=== PATIENT | male | born 1965 | race African-American/Black ===

== ENCOUNTER 2016-10-03 16:55 | Inpatient (IN) | payer OTHER ==
--- NOTE | ~2016-10-03 | IDS ---
Interim Discharge Summary [facility] [address] [place]. [address] NAME: LIONEL COLE III : 65 STATUS : ADM IN PAT#: [id number] AGE: 51 ADM/REG DATE : 10/03/16 MR#: [id number] REPORT SERV DATE: 10/17/16 DICTATED BY: LOLA FUENTES DATE: 10/17/16 REPORT STATUS : Draft TRANSCRIBED BY: MODL DATE: 10/17/16 ADMISSION DATE: 10/03/2016 DISCHARGE DATE: This is my own progress note as well as interim discharge summary for the date of 10/17/2016. SUBJECTIVE: The patient feels great. Protonix has worked very well for his heartburn. He wants to deescalate TPN [place], so that he may be able to be discharged [place], and eventually arrive back in [place] where he would rather be living. OBJECTIVE: VITAL SIGNS: Blood pressure are 118/73, 99% on room air, 15 respirations, 81 pulse, 98.5 temp. GENERAL: In no acute distress. He does look cachectic though. HEENT: PERRLA. No scleral icterus. CARDIOVASCULAR: Regular rate and rhythm. No murmur. RESPIRATORY: Clear to auscultation bilaterally. No wheezes or crackles. ABDOMEN: Nontender and nondistended. Positive bowel sounds. EXTREMITIES: No edema. No ecchymosis. NEURO: GCS 15. A and O x4/4. PSYCH: Normal affect and mood. LABORATORY DATA: 10.9 white count, 8.5 hemoglobin, his hemoglobin has trended from 8.7 to 8.5, platelets are 389,000, 129 of sodium from 135, 95 chloride, CO2 27, BUN 26, 0.8 creatinine, phos of 2.5, a mag of 2.0 as well as a new sodium is 132 from 129, chloride 101 from 95, BUN 18, creatinine 0.76. Mag of 1.9, phos 2.7. Blood cultures, no growth to date on 10/13/2016. IMAGING: I did a repeat CT on 10/13/2016, regarding his recurrent ileus and this showed no obstruction at that time. Fluid collection right upper abdomen largely decompressed. Small bowel residual fluid seen superior to the drain cavity. A surgical drain was positioned for which I had an abscessogram at that time HOSPITAL COURSE: This 51-year-old unfortunate male, with known history of pancreatic cancer for which the patient had a Whipple procedure in [place] of last year. The patient was doing fairly well, but then somehow arrived in [place], [place], for which the patient may have had a perforated bowel, unclear history given records from that hospital still yet to arrive given 30 day dictation time, this occurred within the past month. Apparently at that time, he had bowel wall thickening, free air, emergent surgery, then he came here on his way to [place] from which he is originally from. The patient as a result came in here with abdominal pain, nausea, and vomiting. He had a CT that showed two abscesses for which were both drained via IR, 1.2 L purulent material, 100 mL on the other. Culture finally grew out Verito albicans and he was placed on IV Diflucan. There was some gram-positive Gram stain. However, cocci as a result, was continued on cefepime and Flagyl. I asked for Infectious Disease regarding the bioavailability of oral Diflucan given his Whipple and ileus, for which he had two ileus, likely due to surgical adhesion, versus Interim Discharge Summary [address] [address] NAME: LIONEL COLE III : 65 STATUS : ADM IN [facility]#: [id number] AGE: 51 ADM/REG DATE : 10/03/16 MR#: [id number] REPORT SERV DATE: 10/17/16 DICTATED BY: LOLA FUENTES DATE: 10/17/16 REPORT STATUS : Draft TRANSCRIBED BY: MODL DATE: 10/17/16 electrolyte abnormalities, and lack of p.o. intake. The patient is being seen by Dr. Blood. We will transition to oral fluconazole once he is tolerating a diet and he still on TPN. The patient wants to aggressively reduces his TPN, so that he may be able to be discharged. At one point, he was considering possible AMA as he did in [place], however, now he does not want to do so, and wants to be patient. Plan is to continue to reduce his TPN, possibly cessation in TPN on Monday per pharmacy, and then I am going to calorie count him with full liquids and once he is off TPN, try GI soft mechanical and possible discharge to that time. All questions were answered. It took well over 30 minutes to do. MEGAN/JEET Lola Fuentes DO / [id number] CC: Lola Fuentes DO
--- NOTE | ~2016-10-03 | IDS ---
Interim Discharge Summary [facility] [address] [place] [address] NAME: LIONEL AMANDA III : 65 STATUS : ADM IN PAT#: [id number] AGE: 51 ADM/REG DATE : 10/03/16 MR#: [id number] REPORT SERV DATE: 10/09/16 DICTATED BY: YURI ALMEIDA DATE: 10/09/16 REPORT STATUS : Draft TRANSCRIBED BY: MODFrances DATE: 10/09/16 ADMISSION DATE: 10/03/2016 DISCHARGE DATE: Date that I will be transferring this patient to my partner is 10/11/2016. CONDITION: So far is stable. DIAGNOSES: So far is the followin. Multiple intraabdominal abscesses. The most recent one that was found was in the left lower quadrant of the abdomen and also the left paracolic gutter, for which the patient underwent CT-guided drainage and has two RICHARD drains in place. One of the RICHARD drains is in the left upper quadrant and the other RICHARD drain is in the left lower quadrant. The left upper RICHARD drain is not draining much and is probably ready to come out on 10/10/2016 if okay with surgery, Dr. Morton. 2. Verito abscess-the wound culture from the above abscesses is positive for Verito, copious growth, hence the patient has been on IV Diflucan for this, so the plan is to change to p.o. Diflucan as soon as the patient is able to eat some solid food. 3. The patient is already on anaerobic coverage with IV cefepime and Flagyl, but if anaerobic culture from the above abscess has come back negative, we can stop both cefepime and Flagyl on 10/10/2016 and continue only the Diflucan for covering the yeast or the Verito. 4. Severe malnutrition, for which patient is on TPN. 5. Recent exploratory laparotomy at [facility]-the patient apparently underwent an ex lap for severe abdominal pain, and actually when he got admitted to the [facility], he came in with multiple baljit in the abdominal area and with an adynamic ileus which eventually resolved. 6. Pancreatic cancer. According to the patient, this has been stable as the patient has underwent pancreatic partial resection, chemotherapy, and radiation for this. BRIEF HOSPITAL COURSE: Mr. Amanda is a 51-year-old male patient who came in with severe abdominal pain, nausea, vomiting, adynamic ileus. Recently, he was discharged from [facility] after he underwent an exploratory laparotomy, and when he came in, metallic baljit in the abdominal area were still in place. He was admitted for adynamic ileus and an NG tube suctioning was placed, and the patient was placed n.p.o. The patient does have a history of pancreatic cancer and the patient states that he has had all therapy for this and this is behind him. The patient is a full code now after multiple discussions. 1. We did a CT scan of the abdomen and this showed left paracolic gutter abscess. The patient underwent a CT guided drainage of the abscess and has two RICHARD drains in place right now. The wound culture from these abscesses growing abundant growth of yeast and hence Diflucan was added to his antibiotics that he was started on already. He had already been on cefepime and Flagyl and IV Diflucan was added to his regimen. So far, anaerobic cultures are pending and if negative both antibiotics can be stopped and he needs to be just on Diflucan. 2. As the patient could not eat and was severely malnourished with an albumin of 1.7, we Interim Discharge Summary [address] [address] NAME: LIONEL AMANDA III : 65 STATUS : ADM IN [facility]#: [id number] AGE: 51 ADM/REG DATE : 10/03/16 MR#: [id number] REPORT SERV DATE: 10/09/16 DICTATED BY: YURI ALMEIDA DATE: 10/09/16 REPORT STATUS : Draft TRANSCRIBED BY: MODFrances DATE: 10/09/16 had to start TPN on him at least temporarily, and he is on TPN now. 3. Dr. Morton, Surgery has been following him. PLAN: Plan on this patient and disposition is that the patient wants to go back to [place] probably Monday or , so before then if his anaerobic cultures are negative, we will stop IV cefepime, IV Flagyl, and change IV Diflucan to p.o. Diflucan to cover the abundant growth of Verito albicans that he is having in his intraabdominal abscesses. At least one of his RICHARD drains and abdominal baljit will come out tomorrow if okay with surgery. The other RICHARD drain could probably come out eventually maybe by Monday before he can be discharged. In the meantime, tomorrow I will try advancing his diet and if he tolerate some solid food, we should be able to even take him off the TPN before he is discharged back to [place] Monday. That is the plan on this patient and again as I mentioned, the patient is a full code. This is my interim discharge summary and this patient will be followed by my partner, starting 10/11/2016. FLORIAN/JEET Yuri Almeida M.D. / [id number] CC: Yuri Almeida M.D.
--- NOTE | ~2016-10-03 | HP ---
History And Physical [facility] [address] [place]. [address] NAME: LIONEL AMANDA III : 65 STATUS : ADM Jessika PAT#: [id number] AGE: 51 ADM/REG DATE : 10/03/16 MR#: [id number] REPORT SERV DATE: 10/04/16 DICTATED BY: MARIANA ROE DATE: 10/03/16 REPORT STATUS : Draft TRANSCRIBED BY: MODL DATE: 10/03/16 DATE OF ADMISSION: 10/03/2016 POINT OF ENTRY: [facility] Emergency Department. PRIMARY CARE PHYSICIAN: Unknown at this time. CHIEF COMPLAINT: Abdominal pain, nausea, and vomiting. HISTORY OF PRESENT ILLNESS: Mr. Amanda is a 51-year-old gentleman with reported history of pancreatic cancer, who presents to the emergency department today with complaints of chronic abdominal pain as well as nausea and vomiting. The patient states that he was recently diagnosed with pancreatic cancer in [place], [place], and underwent a Whipple about one year ago and has also completed a course of chemotherapy and radiation also performed about a year ago at [facility] in [place], [place]. The patient states that he was recently in [place], [place] for about the past two to three weeks and recently hospitalized there for reports of abdominal pain, nausea, and vomiting. The patient underwent an exploratory laparotomy for unclear reasons but has evidence of recent surgery with a very large midline abdominal incision with a drainage catheter in place. He states that his surgery was about four days ago. He is unclear as to why it happened and states that he left a few days ago against medical advice as he did not trust the treatment there. On his way back to [place], [place], the patient stopped in [place] and presented to our hospital with complaints of chronic abdominal pain, nausea, and vomiting. Initial evaluation in the emergency department notable for labs, otherwise unremarkable except for evidence of some anemia and leukopenia, lipase within normal limits as well as his CMP. CT scan of the abdomen and pelvis showed a drainage catheter in the left upper quadrant as well as moderate ascites, dilated small bowel concerning for ileus versus distal partial small bowel obstruction. The patient was subsequently admitted to the Hospital Service for further evaluation and management. REVIEW OF SYSTEMS: Comprehensive review of systems otherwise negative unless listed in history of present illness. PREVIOUS MEDICAL HISTORY: 1. Pancreatic cancer, status post Whipple as well as chemotherapy and radiation. 2. Reported diagnosis of hypertension, not on medications. SURGICAL HISTORY: 1. Whipple at the [place], [place] about a year ago. 2. Exploratory laparotomy in [place], [place] at [facility] about 5 days ago for unclear reasons. History And Physical [place] [address] [place]. [address] NAME: LIONEL AMANDA III : 65 STATUS : ADM Jessika PAT#: [id number] AGE: 51 ADM/REG DATE : 10/03/16 MR#: [id number] REPORT SERV DATE: 10/04/16 DICTATED BY: MARIANA ROE DATE: 10/03/16 REPORT STATUS : Draft TRANSCRIBED BY: JEET DATE: 10/03/16 ALLERGIES: NO KNOWN DRUG ALLERGIES. HOME MEDICATIONS: Pending at the time of dictation. SOCIAL HISTORY: Denies any tobacco, alcohol, does endorse some occasional marijuana usage. FAMILY HISTORY: Mother with coronary disease, father with renal cell carcinoma, siblings unknown. LABS AND IMAGING: White count 4.4, hemoglobin 7.8, hematocrit 25.3, platelets 205, INR is 1.4. Sodium 136, potassium 3.9, chloride 100, carbon dioxide 27, BUN 17, creatinine 1.38, glucose 98, calcium 8.2, protein 6.4, albumin 1.9, bilirubin 0.8, ALT 22, AST 32, alkaline phosphatase 76, lipase 26. Urinalysis: Specific gravity is 1.028, trace ketones. No evidence of any infection. Chest x-ray shows no acute cardiopulmonary abnormality. As for CT scan of the abdomen and pelvis shows a drainage catheter in the left upper quadrant as well as moderate ascites with dilated small bowel loops concerning for ileus versus distal partial small bowel obstruction. PHYSICAL EXAMINATION: VITAL SIGNS: Temperature 98.4 degrees Fahrenheit, pulse is 94, respirations 18, saturating 98% on room air, blood pressure is 146/85. GENERAL: The patient is awake, alert, in no acute distress. Resting comfortably in bed. He is a cachectic male. HEENT: Atraumatic and normocephalic. Moist mucous membranes. Pupils are equal, round, reactive to light and accommodation. Extraocular eye movements are intact. No scleral icterus. NECK: No jugular venous distention. No carotid bruits. CARDIAC: Regular rate and rhythm. No murmurs or gallops. Normal S1, S2. LUNGS: Clear to auscultation bilaterally. No wheezes, rhonchi, or rales. ABDOMEN: Diffusely tender to palpation in all quadrants. He has a very large midline abdominal incision that is currently bandaged as well as a drainage catheter in the left lower quadrant draining serous appearing fluid. EXTREMITIES: Warm and perfused. No cyanosis, clubbing, or edema. SKIN: Warm and dry. PSYCH: Affect appropriate. NEURO: Alert and oriented x3. Cranial nerves 2 through 12 grossly intact. Speech is normal. Gait is not assessed. ASSESSMENT AND PLAN: Mr. Amanda is a 51-year-old gentleman with reported history of pancreatic cancer, who underwent recent abdominal surgery for unclear reasons in [place], [place], who presents with persistent abdominal pain, nausea, and vomiting, and found to have evidence of distal partial small bowel obstruction versus possible ileus. History And Physical [address] [address] NAME: LIONEL AMANDA III : 65 STATUS : ADM Jessika PAT#: [id number] AGE: 51 ADM/REG DATE : 10/03/16 MR#: [id number] REPORT SERV DATE: 10/04/16 DICTATED BY: MARIANA ROE DATE: 10/03/16 REPORT STATUS : Draft TRANSCRIBED BY: JEET DATE: 10/03/16 PROBLEM LIST: 1. Ileus, likely postop versus distal partial small bowel obstruction. 2. Abdominal pain, nausea, and vomiting. 3. History of pancreatic cancer, status post Whipple. 4. Postop day #4 from exploratory laparotomy surgery for unclear reasons. PLAN: 1. Postop ileus versus distal partial small bowel obstruction. We will treat supportively with IV fluids, antiemetics, pain control, as well as nothing by mouth. We will check a small bowel follow-through in the morning as well as try to obtain records from [facility] in [place]. We will consult surgery for assistance given that he is postop day 4 from an unknown exploratory laparotomy surgery with drainage catheter in place. 2. Pancreatic cancer. We will try to obtain records from his primary hospital in [place], [place]. 3. Code status. The patient wished to be full code. 4. DVT prophylaxis. Lovenox subcu. JCB/MODL Mariana Roe MD / [id number] CC: Omar Gallegos MD
--- NOTE | ~2016-10-03 | DS ---
Discharge Summary [facility] [address] [place]. [address] NAME: LIONEL COLE III : 65 STATUS : DIS IN PAT#: [id number] AGE: 51 ADM/REG DATE : 10/03/16 MR#: [id number] REPORT SERV DATE: 10/20/16 DICTATED BY: VINCENT FORBES DATE: 10/20/16 REPORT STATUS : Draft TRANSCRIBED BY: MODL DATE: 10/20/16 ADMISSION DATE: 10/03/2016 DISCHARGE DATE: 10/20/2016 DISCHARGE DIAGNOSES: 1. Intraabdominal abscess from Verito. 2. Status post Whipple procedure. 3. Severe protein-calorie malnutrition. 4. Exploratory laparotomy. Adynamic ileus. 5. History of pancreatic cancer, status post Whipple's. CONSULTANTS DURING THIS HOSPITALIZATION: Dr. Brody Blood of Infectious Disease, Interventional Radiology. INVASIVE PROCEDURES DONE DURING THIS HOSPITALIZATION: Placement of multiple intraabdominal drains for drainage of the abscess. BRIEF HISTORY OF PRESENT ILLNESS: The patient is a 51-year-old male, presented with some nausea, vomiting, and abdominal pain. Apparently, he had recently had surgery at [facility] and signed out AMA because he did not trust their care. For detailed history and physical exam, please see note dictated by Dr. Byron Curtis on 10/04/2016. HOSPITAL COURSE: After being admitted to the hospital, this patient was cared for by Dr. Michelle Babb. Please refer to interim summary dictated by Dr. Babb on 10/09/2016. Thereafter, the patient was seen by Dr. Gallo Barron. Please refer to interim summary dictated by Dr. Barron on 10/17/2016. I took over this patient's care on 10/18/2016. This patient has been fully treated and was doing well. All of the drains had been removed except one. He continued to do well and he was tolerating a diet. He did have some evidence of ileus, but his KUB has significantly improved. He did have a bowel movement yesterday. At this time, this patient is frustrated. He says he is not getting any better, and he is still having some pain, however, he says he wants to go home. Infectious Disease has signed off his care and switched him to p.o. Diflucan and two weeks of Diflucan was recommended to be continued on the 10/18/2016. This patient remained stable, otherwise medically. He has been weaned off his TPN as well. DISCHARGE DISPOSITION: Home. DISCHARGE ACTIVITY: As tolerated. DISCHARGE DIET: GI soft diet. DISCHARGE MEDICATIONS: Diflucan 400 mg once daily for 12 more days, Zenpep 33897 units two caplets three times daily, and oxycodone IR 5 mg q.6 hours p.r.n. for pain #12 without refills given. Discharge Summary [address] [address] NAME: LIONEL COLE III : 65 STATUS : DIS IN PAT#: [id number] AGE: 51 ADM/REG DATE : 10/03/16 MR#: [id number] REPORT SERV DATE: 10/20/16 DICTATED BY: VINCENT FORBES DATE: 10/20/16 REPORT STATUS : Draft TRANSCRIBED BY: JEET DATE: 10/20/16 DISCHARGE FOLLOWUP: This patient is from [place] and he will follow up with his physicians in [place] after discharge. More than 30 minutes spent planning this patient's discharge, reconciling medications, writing prescriptions, discussing hospital care, and followup with the patient and documenting this discharge. DICTATED BY: Roseline Savage/JEET Vincent Forbes M.D. / [id number] CC: Vincent Forbes M.D.
--- NOTE | ~2016-10-03 | CN ---
Consultation Report [facility] [address] [place]. [address] NAME: LIONEL COLE III : 65 STATUS : ADM IN PAT#: [id number] AGE: 51 ADM/REG DATE : 10/03/16 MR#: [id number] REPORT SERV DATE: 10/15/16 DICTATED BY: ESTEBAN BLOOD DATE: 10/15/16 REPORT STATUS : Draft TRANSCRIBED BY: MODL DATE: 10/15/16 INFECTIOUS DISEASE CONSULTATION DATE OF CONSULTATION: 10/15/2016 REASON FOR CONSULTATION: Antibiotic recommendations. HISTORY OF PRESENT ILLNESS: This is a 51-year-old man, with a past medical history of pancreatic cancer for which he underwent a Whipple procedure about a year ago in [place], [place], followed by chemo and radiation therapy. We do not have other details though. He moved to [place] in [place] to live with a friend perhaps a couple months ago. He is a vague historian. He was admitted to a hospital in [place] on 09/26/2016, complaining of abdominal pain and had a CT scan done which showed marked ascites and free air, and diffusely dilated small bowel, with bowel wall thickening. His initial white blood cell count was 4.4, and then alli to 12.5. Urine and blood cultures on admission were negative. He was treated with Cipro and Flagyl. At some point, he underwent a laparotomy, but we do not have the operative report. He then left the hospital with a friend to go to [place]. The patient is vague about why he did this. He says he was "delirious." However, he continued to have abdominal pain, nausea, and vomiting, and thus presented to the emergency department at [facility] on 10/03/2016, while on his way to [place]. He was found to have a white blood cell count of 4.4. The patient underwent a CT scan of the abdomen and pelvis, which led to a CT-guided drainage procedure on 10/05/2016, with placement of a drain into a large collection in the left colonic gutter yielding a 100 mL of purulent material. A second drain was placed into a right lower abdominal collection yielding 1.2 L of purulent material. Gram stains of these two collections showed yeast, with one showing gram-positive cocci. Cultures both grew abundant Verito albicans. The left-sided drain was removed on 10/06/2016, the right-sided drain was up sized that day. The patient also had a drain from his surgery in [place] that remains in place. The patient on admission was placed on empiric antibiotics with cefepime and Flagyl. Fluconazole was started on 10/07/2016. He has been afebrile since his initial low-grade fever. The patient's white blood cell count has been stable, but mildly elevated in the 12,000 range over the past week. His course has been complicated by ileus for which he did have an NG tube for a while, but apparently he pulled it out. He did tolerate clear liquids this morning. The patient underwent a followup CT scan yesterday, which showed that the fluid collection in the right upper abdomen was largely decompressed, but there was a small amount of residual fluid seen superior to the drain cavity. A new drain was placed which allowed for drainage of this other collection also. The patient says he has some abdominal pain, but it is not severe. Denies any nausea, vomiting, today. He has not had a bowel movement. The question was raised regarding transition of the IV fluconazole to oral therapy. PAST MEDICAL HISTORY: In addition to the above is notable for hypertension. ALLERGIES: NO KNOWN DRUG ALLERGIES. Consultation Report [address] [place]. [address] NAME: LIONEL COLE III : 65 STATUS : ADM IN [facility]#: [id number] AGE: 51 ADM/REG DATE : 10/03/16 MR#: [id number] REPORT SERV DATE: 10/15/16 DICTATED BY: ESTEBAN BLOOD DATE: 10/15/16 REPORT STATUS : Draft TRANSCRIBED BY: JEET DATE: 10/15/16 PRESENT MEDICATIONS: In addition to the antibiotics include Coreg, Lovenox, insulin sliding scale, Megace, and Florastor. SOCIAL HISTORY: Nonsmoker and nondrinker. FAMILY HISTORY: Notable for coronary artery disease in his mother. Renal cell carcinoma in his father. REVIEW OF SYSTEMS: As outlined above. In addition, no chest pain, cough, or shortness of breath. PHYSICAL EXAMINATION: VITAL SIGNS: The patient weighs 54 kg, afebrile, blood pressure 149/82, pulse 94, respiratory rate 14. GENERAL: He is alert, in no acute distress. HEAD AND NECK: Shows a clear oral cavity without thrush. Neck is supple. LUNGS: Clear to auscultation. CARDIAC: Regular rate and rhythm. Normal S1 and S2 without murmur, gallop, or rub. ABDOMEN: He has a dressing over his abdominal wound. There are two drains, one from his surgery in [place], which has a little bit cloudy material in the RICHARD bulb. The other drain placed yesterday here with serosanguineous material. The abdomen is mildly distended, soft, minimal discomfort to palpation. Well healed scar from his Whipple's surgery. EXTREMITIES: PICC line in the left upper arm placed on 10/06/2016, covered by dressing. No peripheral edema. SKIN: Without rash. LABORATORY STUDIES: White blood cell count yesterday 12.5, hemoglobin 8.7, platelets 387. Creatinine today 0.86. On 10/10/2016 albumin 1.7, prealbumin 10.1. Liver function tests normal. Procalcitonin on 10/13/2016 of 0.33. Microbiology studies as above in addition admission blood cultures here and on 10/12/2016 and 10/13/2016 are all negative. IMAGING STUDIES: As noted. IMPRESSION: Postop intraabdominal abscesses after surgery in [place] in [place]. The findings at surgery at that time are not clear. The admission CT scan there suggested a perforated viscus as he had free air. Overall, the patient has been making reasonable progress here. The initial drainage cultures of two intraabdominal collections grew Verito albicans, although, gram-positive cocci were seen on one Gram stain, and the patient had been on antibacterial therapy which could suppress growth of bacteria. He has had a postoperative ileus, but tolerated liquids this morning. PLAN: 1. I will continue the fluconazole IV for now. There is really no reason to transition to oral therapy until we are more certain that he is tolerating p.o. 2. I will continue the antibacterial therapy with cefepime and Flagyl for now. We will Consultation Report [place] [address] [facility] [address] NAME: LIONEL COLE III : 65 STATUS : ADM IN [facility]#: [id number] AGE: 51 ADM/REG DATE : 10/03/16 MR#: [id number] REPORT SERV DATE: 10/15/16 DICTATED BY: ESTEBAN BLOOD DATE: 10/15/16 REPORT STATUS : Draft TRANSCRIBED BY: JEET DATE: 10/15/16 decrease cefepime dose. Hopefully, I would hope though to discontinue the antibacterials fairly soon as he is on day #12 of treatment. 3. Repeat white blood cell count in the morning. 4. I will monitor drain output. ELANA/JEET Esteban Blood M.D. / [id number] CC: Gallo Barron, DO
[2016-10-03 14:44] LABS: ER CBC TAT 0 Hrs 11 Mins; HEMATOCRIT 25.3 % (40.0-51.0); HEMOGLOBIN 7.8 g/dL (13.6-17.8); MANUAL DIFF YES %; MEAN CORPUS HGB CONC 30.8 g/dL (32.0-36.0); MEAN CORPUSCULAR HEMOGLOB 24.2 pg (26.0-34.0); MEAN CORPUSCULAR VOLUME 78.6 fL (80-100); MEAN PLATELET VOLUME 9.3 fL (9.2-13.0); PLATELET COUNT 205 10/3/uL (150-400); RBC DISTRIBUTION WIDTH 22.8 % (12.0-16.0); RED CELL COUNT 3.22 10/6/uL (4.7-6.1); WHITE BLOOD CELLS 4.4 10/3/uL (4.5-10.5)
[2016-10-03 15:00] LABS: A/G RATIO 0.4 (0.7-1.9); ALBUMIN 1.9 G/DL (3.5-5.0); ALKALINE PHOSPHATASE 56 U/L (45-117); BUN (BLOOD UREA NITROGEN) 17 MG/DL (6-23); CALCIUM, SERUM 8.2 MG/DL (8.5-10.4); CHLORIDE, SERUM 100 MMOL/L (96-112); CO2 (CARBON DIOXIDE) 27 MMOL/L (24-34); CREATININE 1.08 MG/DL (0.70-1.30); GFR AFRICAN AMERICAN 92 ML/MIN (>=60); GFR NON AFRICAN AMERICAN 79 ML/MIN (>=60); GLOBULIN 4.5 G/DL (2.5-4.1); GLUCOSE, SERUM 98 MG/DL (60-99); POTASSIUM, SERUM 3.9 MMOL/L (3.5-5.3); SGOT(AST) 33 U/L (5-40); SGPT(ALT) 22 U/L (5-65); SODIUM, SERUM 136 MMOL/L (135-148); TOTAL BILIRUBIN 0.8 MG/DL (0-1.2); TOTAL PROTEIN 6.4 G/DL (6.0-8.5)
[2016-10-03 15:04] LABS: BAND NEUTROPHILS 18 %; ER DIFF TAT 0 Hrs 31 Mins; LYMPHOCYTES 8 %; LYMPHOCYTES ABSOLUTE (CALC) 0.35 10/3/uL (0.67-4.30); MONOCYTES 10 %; MONOCYTES ABSOLUTE (CALC) 0.44 10/3/uL (0.21-1.20); NEUTROPHILS ABSOLUTE (CALC) 3.61 10/3/uL (2.02-8.40); SEGMENTED NEUTROPHIL (0) 64 %; TOTAL NUCLEATED CELLS 100
[2016-10-03 15:06] LABS: OVALOCYTES 1+ (3-10/OIF) (0-2/OIF); PLATELET ESTIMATE ADQ (ADEQUATE); SCHISTOCYTES OCC (0-2/OIF)
[2016-10-03 16:02] LABS: INTERNATIONAL NORMAL RATI 1.4 UNITS (-)
[2016-10-03 17:16] LABS: ASCORBIC ACID (UR NOT ORDER) NEG (NEG); BILIRUBIN, URINE NEGATIVE (NEG); ER URINALYSIS TAT 0 Hrs 13 Mins; KETONE, URINE TRACE MG/DL (NEG); LEUKOCYTE ESTERASE(NOT OR NEG (NEG); NITRITE (URINE) NEG (NEG); WBC (NOT ORDERED) (RFLEX) 1 (0-5)
[2016-10-03] MEDS ORDERED: PERCOCET 7.5/321 TAB PO (20:16)
[2016-10-03] MEDS ORDERED: ZENPEP DR 25,01 EACH PO (20:19)
[2016-10-03] MEDS ORDERED: ACET500CAP PO (20:20)
[2016-10-03] MEDS ORDERED: UNKNOWN ANTIBIOTIC PO (20:21)
[2016-10-04 06:26] LABS: MEAN CORPUS HGB CONC 31.5 g/dL (32.0-36.0); MEAN CORPUSCULAR HEMOGLOB 25.3 pg (26.0-34.0); MEAN CORPUSCULAR VOLUME 80.2 fL (80-100); MEAN PLATELET VOLUME 9.7 fL (9.2-13.0); PLATELET COUNT 185 10/3/uL (150-400); RBC DISTRIBUTION WIDTH 23.8 % (12.0-16.0); RED CELL COUNT 2.73 10/6/uL (4.7-6.1); WHITE BLOOD CELLS 3.8 10/3/uL (4.5-10.5)
[2016-10-04 06:29] LABS: HEMATOCRIT 21.9 % (40.0-51.0); HEMOGLOBIN 6.9 g/dL (13.6-17.8); MANUAL DIFF YES %
[2016-10-04 06:37] LABS: BUN (BLOOD UREA NITROGEN) 16 MG/DL (6-23); CALCIUM, SERUM 7.9 MG/DL (8.5-10.4); CHLORIDE, SERUM 105 MMOL/L (96-112); CO2 (CARBON DIOXIDE) 23 MMOL/L (24-34); CREATININE 0.96 MG/DL (0.70-1.30); GFR AFRICAN AMERICAN 106 ML/MIN (>=60); GFR NON AFRICAN AMERICAN 91 ML/MIN (>=60); GLUCOSE, SERUM 80 MG/DL (60-99); PHOSPHORUS, SERUM 2.8 MG/DL (2.5-4.5); POTASSIUM, SERUM 4.3 MMOL/L (3.5-5.3); SODIUM, SERUM 135 MMOL/L (135-148)
[2016-10-04 07:05] LABS: BAND NEUTROPHILS 36 %; IMMATURE GRANS ABSOLUTE (CALC) 0.04 10/3/uL (0.0-0.11); LYMPHOCYTES 15 %; LYMPHOCYTES ABSOLUTE (CALC) 0.57 10/3/uL (0.67-4.30); METAMYELOCYTES 1 %; MONOCYTES 8 %; NEUTROPHILS ABSOLUTE (CALC) 2.89 10/3/uL (2.02-8.40); PLATELET ESTIMATE ADQ (ADEQUATE); REACTIVE LYMPHS FEW (3-5%) (0-5%); SEGMENTED NEUTROPHIL (0) 40 %; TOTAL NUCLEATED CELLS 100
[2016-10-04 07:06] LABS: HYPOCHROMIA 1+ (3-10/OIF) (0-2/OIF)
[2016-10-05 06:54] LABS: HEMATOCRIT 27.2 % (40.0-51.0); MANUAL DIFF YES %; MEAN CORPUS HGB CONC 33.1 g/dL (32.0-36.0); MEAN CORPUSCULAR HEMOGLOB 26.1 pg (26.0-34.0); MEAN CORPUSCULAR VOLUME 78.8 fL (80-100); MEAN PLATELET VOLUME 9.9 fL (9.2-13.0); NUCLEATED RED BLOOD CELLS 1.6 /100WBC (0-0); PLATELET COUNT 307 10/3/uL (150-400); RBC DISTRIBUTION WIDTH 21.8 % (12.0-16.0); RED CELL COUNT 3.45 10/6/uL (4.7-6.1); WHITE BLOOD CELLS 4.7 10/3/uL (4.5-10.5)
[2016-10-05 07:09] LABS: A/G RATIO 0.5 (0.7-1.9); ALBUMIN 1.9 G/DL (3.5-5.0); ALKALINE PHOSPHATASE 51 U/L (45-117); CALCIUM, SERUM 7.8 MG/DL (8.5-10.4); CHLORIDE, SERUM 104 MMOL/L (96-112); CREATININE 1.25 MG/DL (0.70-1.30); GFR AFRICAN AMERICAN 77 ML/MIN (>=60); GFR NON AFRICAN AMERICAN 66 ML/MIN (>=60); GLOBULIN 3.9 G/DL (2.5-4.1); POTASSIUM, SERUM 3.7 MMOL/L (3.5-5.3); SGOT(AST) 23 U/L (5-40); SGPT(ALT) 19 U/L (5-65); SODIUM, SERUM 140 MMOL/L (135-148); TOTAL BILIRUBIN 0.8 MG/DL (0-1.2); TOTAL PROTEIN 5.8 G/DL (6.0-8.5)
[2016-10-05 07:12] LABS: BUN (BLOOD UREA NITROGEN) 26 MG/DL (6-23); CO2 (CARBON DIOXIDE) 31 MMOL/L (24-34); GLUCOSE, SERUM 142 MG/DL (60-99)
[2016-10-05 07:18] LABS: LYMPHOCYTES 15 %; LYMPHOCYTES ABSOLUTE (CALC) 0.71 10/3/uL (0.67-4.30); MONOCYTES 6 %; MONOCYTES ABSOLUTE (CALC) 0.28 10/3/uL (0.21-1.20); NEUTROPHILS ABSOLUTE (CALC) 3.71 10/3/uL (2.02-8.40); PLATELET ESTIMATE ADQ (ADEQUATE); SEGMENTED NEUTROPHIL (0) 79 %; TARGET CELLS OCC (1-2/OIF) (0-1/OIF); TOTAL NUCLEATED CELLS 100
[2016-10-06 07:04] LABS: MEAN CORPUS HGB CONC 32.1 g/dL (32.0-36.0); MEAN CORPUSCULAR HEMOGLOB 25.9 pg (26.0-34.0); MEAN CORPUSCULAR VOLUME 80.7 fL (80-100); MEAN PLATELET VOLUME 9.8 fL (9.2-13.0); PLATELET COUNT 363 10/3/uL (150-400); RBC DISTRIBUTION WIDTH 22.4 % (12.0-16.0); RED CELL COUNT 3.47 10/6/uL (4.7-6.1); WHITE BLOOD CELLS 5.9 10/3/uL (4.5-10.5)
[2016-10-06 07:07] LABS: MANUAL DIFF YES %
[2016-10-06 07:25] LABS: A/G RATIO 0.4 (0.7-1.9); ALBUMIN 1.7 G/DL (3.5-5.0); ALKALINE PHOSPHATASE 48 U/L (45-117); BUN (BLOOD UREA NITROGEN) 22 MG/DL (6-23); CALCIUM, SERUM 7.6 MG/DL (8.5-10.4); CHLORIDE, SERUM 106 MMOL/L (96-112); CO2 (CARBON DIOXIDE) 37 MMOL/L (24-34); CREATININE 1.07 MG/DL (0.70-1.30); GFR AFRICAN AMERICAN 93 ML/MIN (>=60); GFR NON AFRICAN AMERICAN 80 ML/MIN (>=60); GLOBULIN 4.2 G/DL (2.5-4.1); GLUCOSE, SERUM 105 MG/DL (60-99); POTASSIUM, SERUM 3.1 MMOL/L (3.5-5.3); SGOT(AST) 22 U/L (5-40); SGPT(ALT) 16 U/L (5-65); SODIUM, SERUM 144 MMOL/L (135-148); TOTAL BILIRUBIN 0.5 MG/DL (0-1.2); TOTAL PROTEIN 5.9 G/DL (6.0-8.5)
[2016-10-06 08:02] LABS: BAND NEUTROPHILS 17 %; EOSINOPHILS 1 %; EOSINOPHILS ABSOLUTE (CALC) 0.06 10/3/uL (0.0-0.53); HYPOCHROMIA 1+ (3-10/OIF) (0-2/OIF); LYMPHOCYTES 12 %; LYMPHOCYTES ABSOLUTE (CALC) 0.71 10/3/uL (0.67-4.30); MONOCYTES 2 %; MONOCYTES ABSOLUTE (CALC) 0.12 10/3/uL (0.21-1.20); NEUTROPHILS ABSOLUTE (CALC) 5.02 10/3/uL (2.02-8.40); PLATELET ESTIMATE DEC (ADEQUATE); POLYCHROMASIA 1+ (2-5/OIF) (0-1/OIF); SEGMENTED NEUTROPHIL (0) 68 %; TOTAL NUCLEATED CELLS 100
[2016-10-06 08:03] LABS: TARGET CELLS FEW (3-10/OIF) (0-1/OIF)
[2016-10-06 08:06] LABS: TOXIC GRANULATION SLT
[2016-10-06 09:46] LABS: TRIGLYCERIDE 121 MG/DL (< 150)
[2016-10-06 09:47] LABS: PHOSPHORUS, SERUM 3.8 MG/DL (2.5-4.5)
[2016-10-06 11:45] LABS: PREALBUMIN 5.2 MG/DL (17.0-43.0)
[2016-10-07 06:19] LABS: HEMATOCRIT 29.4 % (40.0-51.0); MEAN CORPUS HGB CONC 30.6 g/dL (32.0-36.0); MEAN CORPUSCULAR HEMOGLOB 25.5 pg (26.0-34.0); MEAN PLATELET VOLUME 9.5 fL (9.2-13.0); PLATELET COUNT 446 10/3/uL (150-400); RED CELL COUNT 3.53 10/6/uL (4.7-6.1); WHITE BLOOD CELLS 7.5 10/3/uL (4.5-10.5)
[2016-10-07 06:23] LABS: MANUAL DIFF YES %; MEAN CORPUSCULAR VOLUME 83.3 fL (80-100)
[2016-10-07 06:36] LABS: A/G RATIO 0.4 (0.7-1.9); ALBUMIN 1.7 G/DL (3.5-5.0); ALKALINE PHOSPHATASE 49 U/L (45-117); BUN (BLOOD UREA NITROGEN) 25 MG/DL (6-23); CALCIUM, SERUM 7.7 MG/DL (8.5-10.4); CHLORIDE, SERUM 104 MMOL/L (96-112); CO2 (CARBON DIOXIDE) 39 MMOL/L (24-34); GFR AFRICAN AMERICAN 101 ML/MIN (>=60); GFR NON AFRICAN AMERICAN 87 ML/MIN (>=60); GLOBULIN 4.1 G/DL (2.5-4.1); POTASSIUM, SERUM 3.2 MMOL/L (3.5-5.3); SGOT(AST) 15 U/L (5-40); SGPT(ALT) 15 U/L (5-65); SODIUM, SERUM 147 MMOL/L (135-148); TOTAL BILIRUBIN 0.4 MG/DL (0-1.2); TOTAL PROTEIN 5.8 G/DL (6.0-8.5)
[2016-10-07 06:37] LABS: GLUCOSE, SERUM 144 MG/DL (60-99); PHOSPHORUS, SERUM 2.5 MG/DL (2.5-4.5)
[2016-10-07 06:51] LABS: BAND NEUTROPHILS 12 %; EOSINOPHILS 1 %; EOSINOPHILS ABSOLUTE (CALC) 0.08 10/3/uL (0.0-0.53); LYMPHOCYTES 4 %; MONOCYTES 5 %; MONOCYTES ABSOLUTE (CALC) 0.38 10/3/uL (0.21-1.20); NEUTROPHILS ABSOLUTE (CALC) 6.75 10/3/uL (2.02-8.40); SEGMENTED NEUTROPHIL (0) 78 %; TOTAL NUCLEATED CELLS 100
[2016-10-07 06:52] LABS: PLATELET ESTIMATE ADQ (ADEQUATE)
[2016-10-08 05:29] LABS: BASOPHILS 0.2 %; BASOPHILS ABSOLUTE 0.02 10/3/uL (0.0-0.16); EOSINOPHILS 1.2 %; EOSINOPHILS ABSOLUTE 0.12 10/3/uL (0.0-0.53); HEMOGLOBIN 10.2 g/dL (13.6-17.8); IMMATURE GRANULOCYTES 0.8 %; IMMATURE GRANULOCYTES ABSOLUTE 0.08 10/3/uL (0.0-0.11); MEAN CORPUS HGB CONC 30.4 g/dL (32.0-36.0); MEAN CORPUSCULAR HEMOGLOB 25.2 pg (26.0-34.0); MEAN CORPUSCULAR VOLUME 82.9 fL (80-100); MEAN PLATELET VOLUME 9.6 fL (9.2-13.0); MONOCYTES 6.2 %; MONOCYTES ABSOLUTE 0.62 10/3/uL (0.21-1.20); NEUTROPHILS 82.6 %; NEUTROPHILS ABSOLUTE 8.22 10/3/uL (2.02-8.40); PLATELET COUNT 579 10/3/uL (150-400); RBC DISTRIBUTION WIDTH 23.2 % (12.0-16.0); RED CELL COUNT 4.04 10/6/uL (4.7-6.1)
[2016-10-08 05:36] LABS: CALCIUM, SERUM 8.1 MG/DL (8.5-10.4); CHLORIDE, SERUM 106 MMOL/L (96-112); CO2 (CARBON DIOXIDE) 38 MMOL/L (24-34); CREATININE 1.09 MG/DL (0.70-1.30); GFR AFRICAN AMERICAN 91 ML/MIN (>=60); GFR NON AFRICAN AMERICAN 78 ML/MIN (>=60); GLUCOSE, SERUM 141 MG/DL (60-99); POTASSIUM, SERUM 3.5 MMOL/L (3.5-5.3); SODIUM, SERUM 147 MMOL/L (135-148)
[2016-10-08 05:38] LABS: BUN (BLOOD UREA NITROGEN) 33 MG/DL (6-23); PHOSPHORUS, SERUM 3.6 MG/DL (2.5-4.5)
[2016-10-08 05:48] LABS: HEMATOCRIT 33.5 % (40.0-51.0); MANUAL DIFF NO %
[2016-10-08 07:37] LABS: HYPOCHROMIA 1+ (3-10/OIF) (0-2/OIF); PLATELET ESTIMATE SLT INC (ADEQUATE)
[2016-10-09 06:24] LABS: BASOPHILS 0.2 %; BASOPHILS ABSOLUTE 0.02 10/3/uL (0.0-0.16); EOSINOPHILS 2.2 %; EOSINOPHILS ABSOLUTE 0.27 10/3/uL (0.0-0.53); HEMATOCRIT 33.5 % (40.0-51.0); HEMOGLOBIN 10.2 g/dL (13.6-17.8); IMMATURE GRANULOCYTES 0.8 %; LYMPHOCYTES 9.3 %; LYMPHOCYTES ABSOLUTE 1.14 10/3/uL (0.67-4.30); MEAN CORPUS HGB CONC 30.4 g/dL (32.0-36.0); MEAN CORPUSCULAR VOLUME 82.1 fL (80-100); MEAN PLATELET VOLUME 9.8 fL (9.2-13.0); MONOCYTES 3.3 %; NEUTROPHILS 84.2 %; NEUTROPHILS ABSOLUTE 10.33 10/3/uL (2.02-8.40); PLATELET COUNT 613 10/3/uL (150-400); RBC DISTRIBUTION WIDTH 23.4 % (12.0-16.0); RED CELL COUNT 4.08 10/6/uL (4.7-6.1); WHITE BLOOD CELLS 12.3 10/3/uL (4.5-10.5)
[2016-10-09 06:26] LABS: MANUAL DIFF NO %
[2016-10-09 06:36] LABS: BUN (BLOOD UREA NITROGEN) 32 MG/DL (6-23); CALCIUM, SERUM 7.7 MG/DL (8.5-10.4); CHLORIDE, SERUM 105 MMOL/L (96-112); CO2 (CARBON DIOXIDE) 31 MMOL/L (24-34); CREATININE 0.96 MG/DL (0.70-1.30); GFR AFRICAN AMERICAN 106 ML/MIN (>=60); GFR NON AFRICAN AMERICAN 91 ML/MIN (>=60); GLUCOSE, SERUM 158 MG/DL (60-99); POTASSIUM, SERUM 3.5 MMOL/L (3.5-5.3); SODIUM, SERUM 140 MMOL/L (135-148)
[2016-10-09 06:37] LABS: PHOSPHORUS, SERUM 2.1 MG/DL (2.5-4.5)
[2016-10-09 06:55] LABS: PLATELET ESTIMATE INC (ADEQUATE)
[2016-10-09 06:56] LABS: HYPOCHROMIA 1+ (3-10/OIF) (0-2/OIF)
[2016-10-10 05:20] LABS: BASOPHILS 0.2 %; BASOPHILS ABSOLUTE 0.03 10/3/uL (0.0-0.16); EOSINOPHILS 1.4 %; EOSINOPHILS ABSOLUTE 0.19 10/3/uL (0.0-0.53); HEMOGLOBIN 9.4 g/dL (13.6-17.8); IMMATURE GRANULOCYTES 0.8 %; IMMATURE GRANULOCYTES ABSOLUTE 0.11 10/3/uL (0.0-0.11); LYMPHOCYTES 6.9 %; LYMPHOCYTES ABSOLUTE 0.94 10/3/uL (0.67-4.30); MEAN CORPUS HGB CONC 31.3 g/dL (32.0-36.0); MEAN CORPUSCULAR HEMOGLOB 25.6 pg (26.0-34.0); MEAN CORPUSCULAR VOLUME 81.7 fL (80-100); MEAN PLATELET VOLUME 10.2 fL (9.2-13.0); MONOCYTES 6.2 %; MONOCYTES ABSOLUTE 0.85 10/3/uL (0.21-1.20); NEUTROPHILS 84.5 %; NEUTROPHILS ABSOLUTE 11.52 10/3/uL (2.02-8.40); PLATELET COUNT 536 10/3/uL (150-400); RBC DISTRIBUTION WIDTH 23.1 % (12.0-16.0); RED CELL COUNT 3.67 10/6/uL (4.7-6.1); WHITE BLOOD CELLS 13.6 10/3/uL (4.5-10.5)
[2016-10-10 05:23] LABS: MANUAL DIFF NO %
[2016-10-10 05:43] LABS: A/G RATIO 0.4 (0.7-1.9); ALBUMIN 1.7 G/DL (3.5-5.0); ALKALINE PHOSPHATASE 55 U/L (45-117); CALCIUM, SERUM 7.4 MG/DL (8.5-10.4); CHLORIDE, SERUM 106 MMOL/L (96-112); CREATININE 0.68 MG/DL (0.70-1.30); GFR AFRICAN AMERICAN 128 ML/MIN (>=60); GFR NON AFRICAN AMERICAN 111 ML/MIN (>=60); GLOBULIN 4.4 G/DL (2.5-4.1); PHOSPHORUS, SERUM 1.8 MG/DL (2.5-4.5); POTASSIUM, SERUM 3.9 MMOL/L (3.5-5.3); PREALBUMIN 10.1 MG/DL (17.0-43.0); SGOT(AST) 20 U/L (5-40); SGPT(ALT) 13 U/L (5-65); SODIUM, SERUM 137 MMOL/L (135-148); TOTAL BILIRUBIN 0.3 MG/DL (0-1.2); TOTAL PROTEIN 6.1 G/DL (6.0-8.5)
[2016-10-10 05:44] LABS: BUN (BLOOD UREA NITROGEN) 24 MG/DL (6-23); CO2 (CARBON DIOXIDE) 25 MMOL/L (24-34); GLUCOSE, SERUM 119 MG/DL (60-99)
[2016-10-10 06:56] LABS: HYPOCHROMIA 1+ (3-10/OIF) (0-2/OIF); PLATELET ESTIMATE SLT INC (ADEQUATE)
[2016-10-10 06:57] LABS: POLYCHROMASIA 1+ (2-5/OIF) (0-1/OIF)
[2016-10-10 10:22] LABS: HEPATITIS B SURFACE ANTIGEN NON-REACTIVE (NON-REACT)
[2016-10-10 10:24] LABS: HEPATITIS C ANTIBODY NON-REACTIVE (NON-REACT)
[2016-10-10 10:25] LABS: HEPATITIS B CORE AB IGM NON-REACTIVE (NON-REAC)
[2016-10-10 10:46] LABS: HIV COMBO NON-REACTIVE (NON REAC)
[2016-10-10 10:54] LABS: HEP A ANTIBODY IGM NON-REACTIVE (NON-REACT)
[2016-10-11 05:25] LABS: BASOPHILS 0.2 %; BASOPHILS ABSOLUTE 0.02 10/3/uL (0.0-0.16); EOSINOPHILS 1.1 %; EOSINOPHILS ABSOLUTE 0.15 10/3/uL (0.0-0.53); HEMATOCRIT 29.8 % (40.0-51.0); HEMOGLOBIN 9.3 g/dL (13.6-17.8); IMMATURE GRANULOCYTES 0.6 %; IMMATURE GRANULOCYTES ABSOLUTE 0.08 10/3/uL (0.0-0.11); LYMPHOCYTES 5.8 %; LYMPHOCYTES ABSOLUTE 0.77 10/3/uL (0.67-4.30); MEAN CORPUS HGB CONC 31.2 g/dL (32.0-36.0); MEAN CORPUSCULAR HEMOGLOB 24.7 pg (26.0-34.0); MEAN CORPUSCULAR VOLUME 79.3 fL (80-100); MEAN PLATELET VOLUME 9.9 fL (9.2-13.0); MONOCYTES 5.1 %; MONOCYTES ABSOLUTE 0.68 10/3/uL (0.21-1.20); NEUTROPHILS 87.2 %; NEUTROPHILS ABSOLUTE 11.57 10/3/uL (2.02-8.40); PLATELET COUNT 489 10/3/uL (150-400); RBC DISTRIBUTION WIDTH 22.3 % (12.0-16.0); RED CELL COUNT 3.76 10/6/uL (4.7-6.1); WHITE BLOOD CELLS 13.3 10/3/uL (4.5-10.5)
[2016-10-11 05:27] LABS: MANUAL DIFF NO %
[2016-10-11 05:40] LABS: BUN (BLOOD UREA NITROGEN) 24 MG/DL (6-23); CALCIUM, SERUM 7.6 MG/DL (8.5-10.4); CHLORIDE, SERUM 107 MMOL/L (96-112); CREATININE 0.62 MG/DL (0.70-1.30); GFR AFRICAN AMERICAN 133 ML/MIN (>=60); GFR NON AFRICAN AMERICAN 115 ML/MIN (>=60); GLUCOSE, SERUM 121 MG/DL (60-99); PHOSPHORUS, SERUM 2.3 MG/DL (2.5-4.5); POTASSIUM, SERUM 4.4 MMOL/L (3.5-5.3); SODIUM, SERUM 134 MMOL/L (135-148)
[2016-10-11 05:43] LABS: CO2 (CARBON DIOXIDE) 20 MMOL/L (24-34)
[2016-10-11 05:47] LABS: PLATELET ESTIMATE SLT INC (ADEQUATE)
[2016-10-11 05:48] LABS: HYPOCHROMIA 1+ (3-10/OIF) (0-2/OIF); TARGET CELLS FEW (3-10/OIF) (0-1/OIF)
[2016-10-12 06:42] LABS: BASOPHILS 0.2 %; BASOPHILS ABSOLUTE 0.02 10/3/uL (0.0-0.16); EOSINOPHILS 1.1 %; EOSINOPHILS ABSOLUTE 0.13 10/3/uL (0.0-0.53); HEMATOCRIT 28.7 % (40.0-51.0); HEMOGLOBIN 9.2 g/dL (13.6-17.8); IMMATURE GRANULOCYTES 0.5 %; IMMATURE GRANULOCYTES ABSOLUTE 0.06 10/3/uL (0.0-0.11); LYMPHOCYTES ABSOLUTE 0.98 10/3/uL (0.67-4.30); MEAN CORPUS HGB CONC 32.1 g/dL (32.0-36.0); MEAN CORPUSCULAR HEMOGLOB 25.8 pg (26.0-34.0); MEAN CORPUSCULAR VOLUME 80.4 fL (80-100); MONOCYTES 4.6 %; MONOCYTES ABSOLUTE 0.56 10/3/uL (0.21-1.20); NEUTROPHILS 85.6 %; NEUTROPHILS ABSOLUTE 10.45 10/3/uL (2.02-8.40); PLATELET COUNT 465 10/3/uL (150-400); RED CELL COUNT 3.57 10/6/uL (4.7-6.1); WHITE BLOOD CELLS 12.2 10/3/uL (4.5-10.5)
[2016-10-12 06:43] LABS: MANUAL DIFF NO %
[2016-10-12 06:49] LABS: CHLORIDE, SERUM 105 MMOL/L (96-112); CO2 (CARBON DIOXIDE) 24 MMOL/L (24-34); CREATININE 0.57 MG/DL (0.70-1.30); GFR AFRICAN AMERICAN 138 ML/MIN (>=60); GFR NON AFRICAN AMERICAN 119 ML/MIN (>=60); GLUCOSE, SERUM 109 MG/DL (60-99); PHOSPHORUS, SERUM 2.4 MG/DL (2.5-4.5); POTASSIUM, SERUM 4.5 MMOL/L (3.5-5.3); SODIUM, SERUM 136 MMOL/L (135-148)
[2016-10-12 06:50] LABS: BUN (BLOOD UREA NITROGEN) 28 MG/DL (6-23)
[2016-10-12 07:09] LABS: HYPOCHROMIA 1+ (3-10/OIF) (0-2/OIF); PLATELET ESTIMATE SLT INC (ADEQUATE)
[2016-10-13 06:33] LABS: BASOPHILS 0.6 %; BASOPHILS ABSOLUTE 0.08 10/3/uL (0.0-0.16); EOSINOPHILS 0.6 %; EOSINOPHILS ABSOLUTE 0.08 10/3/uL (0.0-0.53); HEMATOCRIT 28.7 % (40.0-51.0); HEMOGLOBIN 9.1 g/dL (13.6-17.8); IMMATURE GRANULOCYTES 0.3 %; IMMATURE GRANULOCYTES ABSOLUTE 0.04 10/3/uL (0.0-0.11); LYMPHOCYTES ABSOLUTE 0.89 10/3/uL (0.67-4.30); MEAN CORPUS HGB CONC 31.7 g/dL (32.0-36.0); MEAN CORPUSCULAR HEMOGLOB 25.9 pg (26.0-34.0); MEAN CORPUSCULAR VOLUME 81.5 fL (80-100); MEAN PLATELET VOLUME 10.1 fL (9.2-13.0); MONOCYTES 6.7 %; MONOCYTES ABSOLUTE 0.86 10/3/uL (0.21-1.20); NEUTROPHILS 84.8 %; NEUTROPHILS ABSOLUTE 10.85 10/3/uL (2.02-8.40); PLATELET COUNT 456 10/3/uL (150-400); RED CELL COUNT 3.52 10/6/uL (4.7-6.1); WHITE BLOOD CELLS 12.8 10/3/uL (4.5-10.5)
[2016-10-13 06:38] LABS: MANUAL DIFF NO %
[2016-10-13 06:45] LABS: BUN (BLOOD UREA NITROGEN) 39 MG/DL (6-23); CHLORIDE, SERUM 102 MMOL/L (96-112); CO2 (CARBON DIOXIDE) 31 MMOL/L (24-34); GFR AFRICAN AMERICAN 120 ML/MIN (>=60); GFR NON AFRICAN AMERICAN 103 ML/MIN (>=60); GLUCOSE, SERUM 120 MG/DL (60-99); PHOSPHORUS, SERUM 3.9 MG/DL (2.5-4.5); POTASSIUM, SERUM 3.9 MMOL/L (3.5-5.3); SODIUM, SERUM 138 MMOL/L (135-148)
[2016-10-13 07:06] LABS: PLATELET ESTIMATE SLT INC (ADEQUATE)
[2016-10-13 07:08] LABS: POLYCHROMASIA 1+ (2-5/OIF) (0-1/OIF)
[2016-10-13 07:09] LABS: TOXIC GRANULATION 1+
[2016-10-14 07:40] LABS: BASOPHILS 0.4 %; BASOPHILS ABSOLUTE 0.05 10/3/uL (0.0-0.16); EOSINOPHILS 0.5 %; EOSINOPHILS ABSOLUTE 0.06 10/3/uL (0.0-0.53); HEMATOCRIT 27.6 % (40.0-51.0); HEMOGLOBIN 8.7 g/dL (13.6-17.8); IMMATURE GRANULOCYTES 0.3 %; IMMATURE GRANULOCYTES ABSOLUTE 0.04 10/3/uL (0.0-0.11); LYMPHOCYTES 7.3 %; LYMPHOCYTES ABSOLUTE 0.91 10/3/uL (0.67-4.30); MANUAL DIFF NO %; MEAN CORPUS HGB CONC 31.5 g/dL (32.0-36.0); MEAN CORPUSCULAR HEMOGLOB 25.7 pg (26.0-34.0); MEAN CORPUSCULAR VOLUME 81.4 fL (80-100); MONOCYTES 5.7 %; MONOCYTES ABSOLUTE 0.71 10/3/uL (0.21-1.20); NEUTROPHILS 85.8 %; NEUTROPHILS ABSOLUTE 10.68 10/3/uL (2.02-8.40); PLATELET COUNT 387 10/3/uL (150-400); RBC DISTRIBUTION WIDTH 23.7 % (12.0-16.0); RED CELL COUNT 3.39 10/6/uL (4.7-6.1); WHITE BLOOD CELLS 12.5 10/3/uL (4.5-10.5)
[2016-10-14 07:53] LABS: BUN (BLOOD UREA NITROGEN) 43 MG/DL (6-23); CHLORIDE, SERUM 101 MMOL/L (96-112); CO2 (CARBON DIOXIDE) 33 MMOL/L (24-34); CREATININE 0.88 MG/DL (0.70-1.30); GFR AFRICAN AMERICAN 115 ML/MIN (>=60); GFR NON AFRICAN AMERICAN 99 ML/MIN (>=60); GLUCOSE, SERUM 137 MG/DL (60-99); PHOSPHORUS, SERUM 3.8 MG/DL (2.5-4.5); POTASSIUM, SERUM 3.5 MMOL/L (3.5-5.3); SODIUM, SERUM 141 MMOL/L (135-148)
[2016-10-14 08:01] LABS: PLATELET ESTIMATE ADQ (ADEQUATE)
[2016-10-14 08:02] LABS: POLYCHROMASIA 1+ (2-5/OIF) (0-1/OIF)
[2016-10-15 07:23] LABS: CALCIUM, SERUM 7.9 MG/DL (8.5-10.4); CHLORIDE, SERUM 100 MMOL/L (96-112); CO2 (CARBON DIOXIDE) 29 MMOL/L (24-34); CREATININE 0.86 MG/DL (0.70-1.30); GFR AFRICAN AMERICAN 116 ML/MIN (>=60); GFR NON AFRICAN AMERICAN 100 ML/MIN (>=60); GLUCOSE, SERUM 154 MG/DL (60-99); PHOSPHORUS, SERUM 3.5 MG/DL (2.5-4.5); POTASSIUM, SERUM 3.9 MMOL/L (3.5-5.3); SODIUM, SERUM 135 MMOL/L (135-148)
[2016-10-15 07:25] LABS: BUN (BLOOD UREA NITROGEN) 33 MG/DL (6-23)
[2016-10-16 06:34] LABS: BASOPHILS 0.4 %; BASOPHILS ABSOLUTE 0.04 10/3/uL (0.0-0.16); EOSINOPHILS 1.8 %; HEMATOCRIT 26.6 % (40.0-51.0); HEMOGLOBIN 8.5 g/dL (13.6-17.8); IMMATURE GRANULOCYTES 0.3 %; IMMATURE GRANULOCYTES ABSOLUTE 0.03 10/3/uL (0.0-0.11); LYMPHOCYTES ABSOLUTE 1.09 10/3/uL (0.67-4.30); MEAN CORPUSCULAR HEMOGLOB 25.5 pg (26.0-34.0); MEAN CORPUSCULAR VOLUME 79.9 fL (80-100); MEAN PLATELET VOLUME 10.6 fL (9.2-13.0); MONOCYTES 6.9 %; MONOCYTES ABSOLUTE 0.75 10/3/uL (0.21-1.20); NEUTROPHILS 80.6 %; NEUTROPHILS ABSOLUTE 8.82 10/3/uL (2.02-8.40); PLATELET COUNT 389 10/3/uL (150-400); RBC DISTRIBUTION WIDTH 22.8 % (12.0-16.0); RED CELL COUNT 3.33 10/6/uL (4.7-6.1); WHITE BLOOD CELLS 10.9 10/3/uL (4.5-10.5)
[2016-10-16 06:36] LABS: MANUAL DIFF NO %
[2016-10-16 06:45] LABS: CALCIUM, SERUM 7.5 MG/DL (8.5-10.4); CHLORIDE, SERUM 95 MMOL/L (96-112); CO2 (CARBON DIOXIDE) 27 MMOL/L (24-34); GFR AFRICAN AMERICAN 120 ML/MIN (>=60); GFR NON AFRICAN AMERICAN 103 ML/MIN (>=60); GLUCOSE, SERUM 128 MG/DL (60-99); POTASSIUM, SERUM 3.9 MMOL/L (3.5-5.3); SODIUM, SERUM 129 MMOL/L (135-148)
[2016-10-16 06:46] LABS: BUN (BLOOD UREA NITROGEN) 26 MG/DL (6-23); PHOSPHORUS, SERUM 2.5 MG/DL (2.5-4.5)
[2016-10-16 07:39] LABS: HYPOCHROMIA 1+ (3-10/OIF) (0-2/OIF); PLATELET ESTIMATE ADQ (ADEQUATE)
[2016-10-16 07:40] LABS: MACROCYTES 1+ (5-10/OIF) (0-5/OIF)
[2016-10-17 04:58] LABS: CALCIUM, SERUM 7.5 MG/DL (8.5-10.4); CHLORIDE, SERUM 101 MMOL/L (96-112); CO2 (CARBON DIOXIDE) 24 MMOL/L (24-34); CREATININE 0.76 MG/DL (0.70-1.30); GFR AFRICAN AMERICAN 122 ML/MIN (>=60); GFR NON AFRICAN AMERICAN 106 ML/MIN (>=60); GLUCOSE, SERUM 145 MG/DL (60-99); PHOSPHORUS, SERUM 2.7 MG/DL (2.5-4.5); POTASSIUM, SERUM 4.1 MMOL/L (3.5-5.3); SODIUM, SERUM 132 MMOL/L (135-148)
[2016-10-17 05:03] LABS: BUN (BLOOD UREA NITROGEN) 18 MG/DL (6-23)
[2016-10-17 15:13] LABS: SODIUM, URINE 8 MEQ/L
[2016-10-17 15:30] LABS: OSMOLALITY, URINE 745 MOSM/KG (50-1200)
[2016-10-18 05:51] LABS: BASOPHILS 0.2 %; BASOPHILS ABSOLUTE 0.02 10/3/uL (0.0-0.16); EOSINOPHILS 0.9 %; EOSINOPHILS ABSOLUTE 0.09 10/3/uL (0.0-0.53); HEMATOCRIT 23.2 % (40.0-51.0); HEMOGLOBIN 7.5 g/dL (13.6-17.8); IMMATURE GRANULOCYTES 0.3 %; IMMATURE GRANULOCYTES ABSOLUTE 0.03 10/3/uL (0.0-0.11); LYMPHOCYTES 7.4 %; LYMPHOCYTES ABSOLUTE 0.71 10/3/uL (0.67-4.30); MANUAL DIFF NO %; MEAN CORPUS HGB CONC 32.3 g/dL (32.0-36.0); MEAN CORPUSCULAR VOLUME 80.3 fL (80-100); MEAN PLATELET VOLUME 10.3 fL (9.2-13.0); MONOCYTES 7.9 %; MONOCYTES ABSOLUTE 0.75 10/3/uL (0.21-1.20); NEUTROPHILS 83.3 %; NEUTROPHILS ABSOLUTE 7.95 10/3/uL (2.02-8.40); PLATELET COUNT 299 10/3/uL (150-400); RBC DISTRIBUTION WIDTH 22.1 % (12.0-16.0); RED CELL COUNT 2.89 10/6/uL (4.7-6.1); WHITE BLOOD CELLS 9.6 10/3/uL (4.5-10.5)
[2016-10-18 05:58] LABS: CALCIUM, SERUM 7.4 MG/DL (8.5-10.4); CHLORIDE, SERUM 102 MMOL/L (96-112); CO2 (CARBON DIOXIDE) 24 MMOL/L (24-34); CREATININE 0.63 MG/DL (0.70-1.30); GFR AFRICAN AMERICAN 132 ML/MIN (>=60); GFR NON AFRICAN AMERICAN 114 ML/MIN (>=60); GLUCOSE, SERUM 155 MG/DL (60-99); PHOSPHORUS, SERUM 2.7 MG/DL (2.5-4.5); POTASSIUM, SERUM 4.2 MMOL/L (3.5-5.3); SODIUM, SERUM 134 MMOL/L (135-148)
[2016-10-18 06:01] LABS: BUN (BLOOD UREA NITROGEN) 13 MG/DL (6-23)
[2016-10-18 06:13] LABS: PLATELET ESTIMATE ADQ (ADEQUATE)
[2016-10-19 05:58] LABS: BASOPHILS 0.3 %; BASOPHILS ABSOLUTE 0.04 10/3/uL (0.0-0.16); EOSINOPHILS 0.9 %; EOSINOPHILS ABSOLUTE 0.11 10/3/uL (0.0-0.53); HEMATOCRIT 27.5 % (40.0-51.0); HEMOGLOBIN 8.8 g/dL (13.6-17.8); IMMATURE GRANULOCYTES 0.3 %; IMMATURE GRANULOCYTES ABSOLUTE 0.04 10/3/uL (0.0-0.11); LYMPHOCYTES 9.5 %; MANUAL DIFF NO %; MEAN CORPUSCULAR HEMOGLOB 25.8 pg (26.0-34.0); MEAN CORPUSCULAR VOLUME 80.6 fL (80-100); MEAN PLATELET VOLUME 10.7 fL (9.2-13.0); MONOCYTES 6.5 %; MONOCYTES ABSOLUTE 0.75 10/3/uL (0.21-1.20); NEUTROPHILS 82.5 %; NEUTROPHILS ABSOLUTE 9.57 10/3/uL (2.02-8.40); PLATELET COUNT 340 10/3/uL (150-400); RBC DISTRIBUTION WIDTH 22.8 % (12.0-16.0); RED CELL COUNT 3.41 10/6/uL (4.7-6.1); WHITE BLOOD CELLS 11.6 10/3/uL (4.5-10.5)
[2016-10-19 06:11] LABS: ALBUMIN 1.8 G/DL (3.5-5.0); BUN (BLOOD UREA NITROGEN) 10 MG/DL (6-23); CALCIUM, SERUM 8.1 MG/DL (8.5-10.4); CHLORIDE, SERUM 101 MMOL/L (96-112); CO2 (CARBON DIOXIDE) 25 MMOL/L (24-34); CREATININE 0.67 MG/DL (0.70-1.30); GFR AFRICAN AMERICAN 129 ML/MIN (>=60); GFR NON AFRICAN AMERICAN 111 ML/MIN (>=60); PHOSPHORUS, SERUM 3.1 MG/DL (2.5-4.5); SODIUM, SERUM 135 MMOL/L (135-148)
[2016-10-19 06:14] LABS: GLUCOSE, SERUM 98 MG/DL (60-99)
[2016-10-19 06:23] LABS: PLATELET ESTIMATE ADQ (ADEQUATE)
[2016-10-20 05:26] LABS: BASOPHILS 0.3 %; BASOPHILS ABSOLUTE 0.03 10/3/uL (0.0-0.16); EOSINOPHILS 0.8 %; EOSINOPHILS ABSOLUTE 0.09 10/3/uL (0.0-0.53); HEMATOCRIT 26.7 % (40.0-51.0); HEMOGLOBIN 8.5 g/dL (13.6-17.8); IMMATURE GRANULOCYTES 0.3 %; IMMATURE GRANULOCYTES ABSOLUTE 0.03 10/3/uL (0.0-0.11); LYMPHOCYTES 10.3 %; LYMPHOCYTES ABSOLUTE 1.13 10/3/uL (0.67-4.30); MEAN CORPUS HGB CONC 31.8 g/dL (32.0-36.0); MEAN CORPUSCULAR HEMOGLOB 26.2 pg (26.0-34.0); MEAN CORPUSCULAR VOLUME 82.4 fL (80-100); MEAN PLATELET VOLUME 10.4 fL (9.2-13.0); MONOCYTES 6.8 %; MONOCYTES ABSOLUTE 0.75 10/3/uL (0.21-1.20); NEUTROPHILS 81.5 %; NEUTROPHILS ABSOLUTE 8.95 10/3/uL (2.02-8.40); PLATELET COUNT 401 10/3/uL (150-400); RBC DISTRIBUTION WIDTH 23.3 % (12.0-16.0); RED CELL COUNT 3.24 10/6/uL (4.7-6.1)
[2016-10-20 05:27] LABS: MANUAL DIFF NO %
[2016-10-20 05:42] LABS: ALBUMIN 1.8 G/DL (3.5-5.0); BUN (BLOOD UREA NITROGEN) 10 MG/DL (6-23); CALCIUM, SERUM 8.1 MG/DL (8.5-10.4); CHLORIDE, SERUM 100 MMOL/L (96-112); CHLORIDE, SERUM 99 MMOL/L (96-112); CO2 (CARBON DIOXIDE) 28 MMOL/L (24-34); CREATININE 0.73 MG/DL (0.70-1.30); CREATININE 0.78 MG/DL (0.70-1.30); GFR AFRICAN AMERICAN 121 ML/MIN (>=60); GFR AFRICAN AMERICAN 124 ML/MIN (>=60); GFR NON AFRICAN AMERICAN 105 ML/MIN (>=60); GFR NON AFRICAN AMERICAN 107 ML/MIN (>=60); GLUCOSE, SERUM 112 MG/DL (60-99); GLUCOSE, SERUM 114 MG/DL (60-99); POTASSIUM, SERUM 4.1 MMOL/L (3.5-5.3); SODIUM, SERUM 135 MMOL/L (135-148)
[2016-10-20 06:03] LABS: HYPOCHROMIA 1+ (3-10/OIF) (0-2/OIF); MICROCYTES 1+ (5-10/OIF) (0-5/OIF); PLATELET ESTIMATE SLT INC (ADEQUATE)
[2016-10-20] MEDS ORDERED: FLUCON1 PO (12:36)
[2016-10-20] MEDS ORDERED: [UNRECOGNIZED DRUG - OTHER] PO (12:37)
== END 2016-10-20 13:02 | disposition home or self-care (01) | DRG 371 ==
LOC: ER 16:55 → 5SO 20:02
PROVIDERS: Hospitalist; Internal Medicine; Internal Medicine Infectious Disease; Physician Assistant; Specialist
PROC: 0W9G3ZZ Drainage of Peritoneal Cavity, Percutaneous Approach (ICD-10-PCS; 2016-10-05)
PROC: 30233N1 Transfusion of Nonautologous Red Blood Cells into Peripheral Vein, Percutaneous Approach (ICD-10-PCS; 2016-10-05)
PROC: 0W9F30Z Drainage of Abdominal Wall with Drainage Device, Percutaneous Approach (ICD-10-PCS; principal; 2016-10-06)
PROC: 02HV33Z Insertion of Infusion Device into Superior Vena Cava, Percutaneous Approach (ICD-10-PCS; 2016-10-06)
PROC: 4A02X4A Measurement of Cardiac Electrical Activity, Guidance, External Approach (ICD-10-PCS; 2016-10-06)
PROC: 3E0436Z Introduction of Nutritional Substance into Central Vein, Percutaneous Approach (ICD-10-PCS; 2016-10-06)
DX: K65.1 Peritoneal abscess (principal); E43 Unspecified severe protein-calorie malnutrition; K56.7 Ileus, unspecified; F12.90 Cannabis use, unspecified, uncomplicated; I10 Essential (primary) hypertension; Z85.07 Personal history of malignant neoplasm of pancreas; Z80.51 Family history of malignant neoplasm of kidney; Z82.49 Family history of ischemic heart disease and other diseases of the circulatory system; Z92.21 Personal history of antineoplastic chemotherapy; Z79.899 Other long term (current) drug therapy; Z98.890 Other specified postprocedural states; Z90.49 Acquired absence of other specified parts of digestive tract
CPT/HCPCS: 36415; 36569; 49083; 49418; 49423; 49424; 71010; 74000; 74020; 74176; 74250; 75984; 76080; 80048; 80053; 80069; 80074; 81001; 82272; 82330; 82962; 83605; 83690; 83735; 83930; 83935; 84100; 84134; 84145; 84300; 84478; 85025; 85610; 85730; 86850; 86900; 86901; 86920; 87040; 87070; 87075; 87205; 87389; 96374; 96375; 96376; 97162-GP; 99152; 99153; 99285; A9270-GY; C1729; C1751; C1769; C1892; C9113; J0360; J0692; J1170; J1450; J2250; J2405; J2765; J3010; J3475; P9016; Q9967